=== PATIENT | male | born 1955 | race Hispanic/Latino ===

== ENCOUNTER 2016-11-25 11:48 | Emergency (ER) | payer SELFPAY ==
[2016-11-25 12:00] VITALS: BP 128/81
--- NOTE | 2016-11-25 12:39 | Emergency Department Report ---
Entered by BOB PATIÑO, acting as scribe for CRISTHIAN BARRY NP. ED Lower Extremity HPI - General Chief Complaint: Extremity Injury, Lower Stated Complaint: RT FOOT BLISTER Time Seen by Provider: 11/25/16 12:08 Source: patient Mode of arrival: Ambulatory Limitations: No Limitations - History of Present Illness Initial Comments: 61 y/o male with PMHx of HEP C, presents to the ED c/o acute blister to bottom of right foot that began 1 week ago. Associated symptoms include pain but he denies fever and chills. Pain is described as 8/10 on a severity scale. Patient states he got it after he got his feet wet and walked for a few days. He is being seen at [place]. No alleviating or aggravating symptoms. NKDA. TATE Complaint: other (blister to bottom of right foot) Onset/Timin -: Sudden, week(s) Injury: Foot: Right (blister ) Type of Injury: other (friction blister no trauma fall or injury) Place: street/outdoors Severity: severe Severity scale (0 -10): 8 Improves With: nothing Worsens With: nothing Context: walking (feet got wet) Associated Symptoms: other (pain, no fever, no chills) - Related Data Previous Rx's Medication Instructions Recorded Last Taken Type Acetaminophen [Acetaminophen TAB] 500 mg PO Q6HR PRN #30 tablet 11/25/16 Unknown Rx Cephalexin [Keflex] 500 mg PO TID #30 capsule 11/25/16 Unknown Rx Allergies Allergy/AdvReac Type Severity Reaction Status Date / Time No Known Allergies Allergy Unverified 11/25/16 11:57 ED Review of Systems Comment: All other systems reviewed and negative Constitutional: denies: chills, fever Respiratory: denies: cough, shortness of breath, wheezing Cardiovascular: denies: chest pain, palpitations Musculoskeletal: denies: back pain, joint swelling, arthralgia Skin: other (blister to bottom of right foot and pain) ED Past Medical Hx - Past Medical History Previous Medical History?: Yes Hx Liver Disease: Yes (HEP C) Hx Psychiatric Treatment: Yes (depression) - Surgical History Past Surgical History?: No - Social History Smoking Status: Current Every Day Smoker Substance Use Type: None - Medications Home Medications: Home Medications Medication Instructions Recorded Confirmed Last Taken Type Acetaminophen [Acetaminophen TAB] 500 mg PO Q6HR PRN #30 tablet 11/25/16 Unknown Rx Cephalexin [Keflex] 500 mg PO TID #30 capsule 11/25/16 Unknown Rx ED Physical Exam - General Limitations: No Limitations General appearance: alert, in no apparent distress - Head Head exam: Present: atraumatic, normocephalic, normal inspection - Eye Eye exam: Present: normal appearance, PERRL, EOMI Pupils: Present: normal accommodation - ENT ENT exam: Present: normal exam, normal orophraynx, mucous membranes moist, TM's normal bilaterally, normal external ear exam - Neck Neck exam: Present: normal inspection, full ROM. Absent: tenderness - Respiratory Respiratory exam: Present: normal lung sounds bilaterally. Absent: wheezes, rales, rhonchi - Cardiovascular Cardiovascular Exam: Present: regular rate, normal rhythm, normal heart sounds. Absent: systolic murmur, diastolic murmur, rubs, gallop - GI/Abdominal GI/Abdominal exam: Present: soft, normal bowel sounds. Absent: tenderness, guarding, rebound - Rectal Rectal exam: Present: deferred - Extremities Exam Extremities exam: Present: normal inspection, full ROM, normal capillary refill. Absent: tenderness, pedal edema, joint swelling, calf tenderness - Back Exam Back exam: Present: normal inspection, full ROM. Absent: tenderness, CVA tenderness (R), CVA tenderness (L), rash noted - Neurological Exam Neurological exam: Present: alert, oriented X3 - Psychiatric Psychiatric exam: Present: normal affect, normal mood - Skin Skin exam: Present: other (friction blister to mid plantar of foot) ED Course Vital Signs 11/25/16 11:57 Temperature 97.8 F Pulse Rate 59 L Respiratory 20 Rate Blood Pressure 128/81 O2 Sat by Pulse 99 Oximetry ED Lower Extremity MDM - Medical Decision Making pt is a 61 y/o w/m hx of substance abuse and depression intermittent homelessness who presents for right foot blister " my feed got wet and I just kept on walking and developed a blister on my right foot, bliser 1x2 cm plantar foot not ruptured, pain full to touch , pt remain ambulatory , gaits steady no erythema no drainage 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 ED Disposition Clinical Impression: Blister of foot without infection Qualifiers: Encounter type: initial encounter Laterality: right Qualified Code(s): S90.821A - Blister (nonthermal), right foot, initial encounter Disposition: TO HOME OR SELFCARE Is pt being admited?: No Does the pt Need Aspirin: No Condition: Good Instructions: Blister (ED) Additional Instructions: follow up with [facility] as directed Prescriptions: Acetaminophen [Acetaminophen TAB] 500 mg PO Q6HR PRN #30 tablet PRN Reason: Pain Cephalexin [Keflex] 500 mg PO TID #30 capsule Referrals: PRIMARY CARE,MD [Primary Care Provider] - 3-5 Days Time of Disposition: 12:38 This documentation as recorded by the KAYLYN nath ELIZABETH,accurately reflects the service I personally performed and the decisions made by me, CRISTHIAN BARRY NP.
== END 2016-11-25 12:53 | disposition home or self-care (01) ==
LOC: ED 11:48
DX: S90.821A Blister (nonthermal), right foot, initial encounter (principal); M79.671 Pain in right foot; F17.200 Nicotine dependence, unspecified, uncomplicated; X58.XXXA Exposure to other specified factors, initial encounter; Y93.9 Activity, unspecified; Y92.9 Unspecified place or not applicable; Y99.9 Unspecified external cause status
CPT/HCPCS: 82962; 99282